=== PATIENT | male | born 1990 | race Hispanic/Latino ===

== ENCOUNTER 2022-11-12 09:57 | Emergency (ER) | payer MEDICARE ==
[~2022-11-12] VITALS: Ht 190.5 cm; Wt 85.5 kg
[2022-11-12] MEDS ORDERED: diphenhydrAMINE 50MG/ML VIAL IV STA (11:34)
[2022-11-12] MEDS ORDERED: methylPREDNISolone 125MG 2ML VIAL IV ONE (11:35)
[2022-11-12] MEDS ORDERED: FLUORESCEIN OPHTH 1MG STRIP OD ONE (11:35)
[2022-11-12] MEDS ORDERED: TETRACAINE 0.5% OPHTH SOLN 4ML OD ONE (11:35)
[2022-11-12] MEDS ORDERED: NS 1,000 ML IV ONE (11:35)
[2022-11-12] MEDS ORDERED: CIPR0.3S37 OD (12:55)
[2022-11-12] MEDS ORDERED: DOXY100C82 PO (12:55)
[2022-11-12 13:11] VITALS: BP 131/83; TEMP 97.2; O2SAT 99
[2022-11-12] MEDS ORDERED: OCUF0.25 OD (15:08)
[2022-11-12] MEDS ORDERED: DOXY-443 PO (15:08)
== END 2022-11-12 13:26 | disposition home or self-care (01) ==
LOC: M ED 09:57
DX: H05.011 Cellulitis of right orbit (principal); T37.0X5A Adverse effect of sulfonamides, initial encounter; Z88.8 Allergy status to other drugs, medicaments and biological substances; Z79.899 Other long term (current) drug therapy
CPT/HCPCS: 96374; 96375; 99284; J1200; J2930

== ENCOUNTER → 2024-03-30 | Outpatient (CLI) | payer OTHER ==
[~2024-03-30] MED LIST: CIPR0.3S37 OD; DOXY-441 PO; DOXY100C82 PO; OCUF0.25 OD
[2024-03-30 10:09] LABS: PLATELET COUNT, AUTOMATED 236 10^3/uL (150-450)
[2024-03-30 10:24] LABS: INR 0.98; PARTIAL THROMBOPLASTIN TIME 29.3 SECONDS (24.8-34.2); PROTHROMBIN TIME 13.3 SECONDS (12.5-14.5)
== END ==
LOC: M LAB 09:22
PROVIDERS: ATTEND Physical Medicine & Rehabilitation
DX: Z01.812 Encounter for preprocedural laboratory examination (principal)

== ENCOUNTER → 2024-05-04 | Outpatient (REF) | payer OTHER ==
[2024-05-04 13:46] LABS: BASO % 0.5 % (0.0-1.0); EOS # 0.2 10^3/uL (0.0-0.5); EOS % 2.7 % (0.0-3.0); HEMATOCRIT 46.3 % (42.0-52.0); HEMOGLOBIN 15.9 g/dl (13.5-17.5); LYMPH # 1.5 10^3/uL (1.5-5.0); LYMPH % 25.9 % (24.0-44.0); MEAN CORPUSCULAR HEMOGLOBIN 31.1 pg (27.0-33.0); MEAN CORPUSCULAR HGB CONC 34.3 g/dl (32.0-36.5); MEAN CORPUSCULAR VOLUME 90.4 fl (80.0-96.0); MONO # 0.5 10^3/uL (0.0-0.8); MONO % 8.6 % (2.0-8.0); NEUTROPHILS # 3.7 10^3/uL (1.5-8.5); NEUTROPHILS % 62.1 % (36.0-66.0); PLATELET COUNT, AUTOMATED 242 10^3/uL (150-450); RED BLOOD COUNT 5.12 10^6/uL (4.30-6.10); WHITE BLOOD COUNT 5.9 10^3/uL (4.0-10.0)
[2024-05-04 13:55] LABS: THYROID STIMULATING HORMONE 1.291 uIU/ML (0.55-4.78)
[2024-05-04 13:56] LABS: ALBUMIN 3.8 G/DL (3.2-5.2); ALKALINE PHOSPHATASE 101 U/L (40-129); ALT/SGPT 87 U/L (7.0-40); AST/SGOT 39 U/L (<34); BILIRUBIN,TOTAL 0.5 MG/DL (0.3-1.2); BLOOD UREA NITROGEN 10 MG/DL (9-23); CALCIUM LEVEL 9.5 MG/DL (8.5-10.1); CARBON DIOXIDE LEVEL 31 MMOL/L (20-31); CHLORIDE LEVEL 106 MMOL/L (98-107); CHOLESTEROL LEVEL 161 MG/DL (<200); CHOLESTEROL RISK RATIO 3.25 (<5); CREATININE FOR GFR 0.84 MG/DL (0.70-1.30); GLOMERULAR FILTRATION RATE > 60.0 (>60); GLUCOSE, FASTING 92 MG/DL (60-100); HDL CHOLESTEROL 49.4 MG/DL (>40); LDL CHOLESTEROL 98.4 MG/DL (<100); NON-HDL-C 111.6 MG/DL; POTASSIUM SERUM 4.1 MMOL/L (3.5-5.1); SODIUM LEVEL 141 MMOL/L (136-145); TOTAL PROTEIN 6.9 G/DL (5.7-8.2); TRIGLYCERIDES LEVEL 66 MG/DL (<150)
[2024-05-04 14:00] LABS: HEMOGLOBIN A1c 4.9 % (4.0-6.0)
== END ==
LOC: M LAB REF 12:25
PROVIDERS: ATTEND Nurse Practitioner Family
DX: E66.3 Overweight (principal); R53.83 Other fatigue; Z11.9 Encounter for screening for infectious and parasitic diseases, unspecified